=== PATIENT | male | born 1995 | race Caucasian/White ===

== ENCOUNTER 2019-06-01 15:47 | Emergency (ER) | payer OTHER ==
[~2019-06-01] VITALS: Ht 182.9 cm; Wt 90.4 kg
[2019-06-01] MEDS ORDERED: IBUP200C25 PO (16:03)
[2019-06-01] MEDS ORDERED: ACET1TAB55 PO (16:03)
[2019-06-01] MEDS ORDERED: ACETAMINOPHEN 325 MG TAB PO ONE (16:30)
[2019-06-01] MEDS ORDERED: KETOROLAC 60 MG/2 ML VIAL (J1885) IM ONE (16:30)
--- NOTE | 2019-06-01 16:59 | REPVR ---
PROCEDURE INFORMATION: Exam: CT Lumbar Spine Without Contrast Exam date and time: 06/01/2019 4:35 PM Age: 23 years old Clinical indication: Low back pain; Additional info: HX of herniated disc l3-l5, low back strain yesterday TECHNIQUE: Imaging protocol: Computed tomography images of the lumbar spine without contrast. Radiation optimization: All CT scans at this facility use at least one of these dose optimization techniques: automated exposure control; mA and/or kV adjustment per patient size (includes targeted exams where dose is matched to clinical indication); or iterative reconstruction. COMPARISON: No relevant prior studies available. FINDINGS: Vertebrae: There is no fracture. Vertebral bodies maintain their height and alignment. There is no fracture of the posterior elements. There is no focal osseous lesion. There is a nonunited tip of the right transverse process at L1, a normal variant. S1 is a transitional vertebra. It is partly lumbarized with a rudimentary disc. Discs/Spinal canal/Neural foramina: L4-L5: Mild disc bulge. No central or foraminal stenosis. L5-S1: 5 mm central to right paracentral disc protrusion indenting the thecal sac. There is facet arthropathy with mild bilateral foraminal stenosis. Soft tissues: Unremarkable. IMPRESSION: 1. No fracture. 2. Disc disease described above. Electronically signed by: Mauri Ruano On 06/01/2019 17:00:42 PM
[2019-06-01] MEDS ORDERED: KETO10TAB PO (17:30)
[2019-06-01 17:34] VITALS: BP 136/75
== END 2019-06-01 17:43 | disposition home or self-care (01) ==
LOC: M ED 15:47
DX: M51.26 Other intervertebral disc displacement, lumbar region (principal); M51.27 Other intervertebral disc displacement, lumbosacral region; X50.0XXA Overexertion from strenuous movement or load, initial encounter; Y92.89 Other specified places as the place of occurrence of the external cause; Y93.B9 Activity, other involving muscle strengthening exercises; Y99.1 Military activity
CPT/HCPCS: 72131; 96372; 99283; J1885

== ENCOUNTER 2019-07-15 09:05 | Day surgery (SDC) | payer OTHER ==
[~2019-07-15] VITALS: Ht 188 cm; Wt 87.5 kg
[~2019-07-15 09:05] MED LIST: ACET1TAB55 PO; IBUP200C25 PO; KETO10TAB PO; NS 1,000 ML IV ONE
--- NOTE | 2019-07-15 11:29 | ROOR ---
Patient Name: Nicholas Kenny Procedure Date: 07/15/2019 10:55 AM Date of : 1995 Age: 24 Room: EDEN02 Gender: Male Note Status: Finalized Procedure: Total Colonoscopy to Cecum + ileoscopy + Bx Indications: Rectal bleeding, Change in bowel habits Providers: Jorge Hammond MD Referring MD: EDSON SANDHU MD Requesting Provider: Medicines: Monitored Anesthesia Care Complications: No immediate complications. Procedure: Pre-Anesthesia Assessment: - The heart rate, respiratory rate, oxygen saturations, blood pressure, adequacy of pulmonary ventilation, and response to care were monitored throughout the procedure. The Colonoscope was introduced through the anus and advanced to the terminal ileum, with identification of the appendiceal orifice and IC valve. The colonoscopy was performed without difficulty. The patient tolerated the procedure well. The quality of the bowel preparation was excellent. Findings: The perianal and digital rectal examinations were normal. Non-bleeding internal hemorrhoids were found during retroflexion. The hemorrhoids were small and Grade I (internal hemorrhoids that do not prolapse). Inflammation characterized by altered vascularity, congestion (edema), erythema, friability, granularity, loss of vascularity and mucus was found in a continuous and circumferential pattern from the anus to the rectum. The sigmoid colon, the descending colon, the transverse colon, the ascending colon, the cecum and the ileocecal valve were spared. This was mild in severity. Biopsies were taken with a cold forceps for histology. The terminal ileum appeared normal. The exam was otherwise without abnormality. Impression: - Non-bleeding internal hemorrhoids. - Proctitis ulcerative colitis. Inflammation was found from the anus to the rectum. This was mild in severity. Biopsied. - The examined portion of the ileum was normal. - The examination was otherwise normal. - The exam was otherwise normal to the cecum. Recommendation: - Patient has a contact number available for emergencies. The signs and symptoms of potential delayed complications were discussed with the patient. Return to normal activities tomorrow. Written discharge instructions were provided to the patient. - Resume previous diet. - Discharge patient to home. - Continue present medications. - Await pathology results. - Telephone GI clinic for pathology results in 1 week. - Use Canasa 1000 mg suppository 1 per rectum QHS. - Return to my office in 1 month. - The findings and recommendations were discussed with the patient's family. Jorge Hammond MD Jorge Hammond MD 07/15/2019 11:28:43 AM Electronically signed by Jorge Hammond MD Number of Addenda: 0 Note Initiated On: 07/15/2019 10:55 AM Estimated Blood Loss: Estimated blood loss: none.
[2019-07-15 11:50] VITALS: BP 125/70
== END 2019-07-15 11:55 | disposition home or self-care (01) ==
LOC: M OPP 09:05
PROVIDERS: ATTEND Internal Medicine Gastroenterology
DX: K64.0 First degree hemorrhoids (principal); K51.211 Ulcerative (chronic) proctitis with rectal bleeding; K62.5 Hemorrhage of anus and rectum; R19.4 Change in bowel habit

== ENCOUNTER 2020-11-02 14:37 | Emergency (ER) | payer OTHER ==
[~2020-11-02] VITALS: Ht 182.9 cm; Wt 92.9 kg
[~2020-11-02 14:37] MED LIST changes: -NS 1,000 ML IV ONE
[2020-11-02 14:39] VITALS: BP 163/85
[2020-11-02] MEDS ORDERED: MESA1000 (14:46)
[2020-11-02] MEDS ORDERED: KETOROLAC 30 MG/ML 1ML VIAL IM ONE (17:50)
[2020-11-02] MEDS ORDERED: methocarbamoL 500 MG TAB PO ONE (17:50)
[2020-11-02] MEDS ORDERED: KETO10TAB PO (18:22)
[2020-11-02] MEDS ORDERED: METH-1164 PO (18:23)
== END 2020-11-02 18:29 | disposition home or self-care (01) ==
LOC: M ED 14:37
DX: M54.30 Sciatica, unspecified side (principal); M51.9 Unspecified thoracic, thoracolumbar and lumbosacral intervertebral disc disorder; I10 Essential (primary) hypertension
CPT/HCPCS: 96372; 99282; J1885